=== PATIENT | male | born 1945 | race Caucasian/White ===

== ENCOUNTER 2019-09-26 15:27 | Observation (INO) | payer MEDICARE, BC ==
[2019-09-26] MEDS ORDERED: Temazepam 15 MG Cap PO PRN (17:25)
[2019-09-26] MEDS ORDERED: Sodium Chloride 0.9% 10 ML Syringe FLUSH PRN (17:25)
[2019-09-26] MEDS ORDERED: Morphine 2 MG/ML SYRINGE IVPUSH PRN (17:25)
[2019-09-26] MEDS ORDERED: Acetaminophen/HYDROcodone 325-5 MG Tab PO PRN (17:25)
[2019-09-26] MEDS ORDERED: Ondansetron 4 MG Tab.DIS PO PRN (17:25)
[2019-09-26] MEDS ORDERED: Ketorolac 30 MG/ML SDV IVPUSH PRN (17:30)
[2019-09-26] MEDS: Cyclobenzaprine 10 MG Tab PO SCH (19:30)
[2019-09-26] MEDS: Carvedilol 3.125 MG Tab PO SCH (19:30)
[2019-09-27] MEDS: Carvedilol 3.125 MG Tab PO SCH ×2 (07:31→17:35)
[2019-09-27] MEDS: Aspirin 325 MG Tab PO SCH (07:31)
[2019-09-27] MEDS: Lisinopril 10 MG Tab PO SCH (07:32)
[2019-09-27] MEDS: Cyclobenzaprine 10 MG Tab PO SCH ×3 (07:32→19:35)
[2019-09-27] MEDS: Furosemide 40 MG Tab PO SCH (07:32)
[2019-09-27] MEDS: Clopidogrel 75 MG Tab PO SCH (07:32)
[2019-09-27] MEDS ORDERED: Simvastatin 20 MG Tab PO SCH (08:00)
--- NOTE | 2019-09-27 09:23 | PCM.PN ---
- General Info Date of Service: 09/27/19 Admission Dx/Problem (Free Text): Low Back Pain Functional Status: Reports: Pain Controlled (rates pain down to a 4 with movement, previously a 10), Tolerating Diet, Ambulating - Review of Systems General: Reports: Weakness HEENT: Reports: No Symptoms Pulmonary: Denies: Shortness of Breath, Cough Cardiovascular: Denies: Chest Pain, Edema, Lightheadedness Gastrointestinal: Denies: Abdominal Pain, Nausea, Vomiting Genitourinary: Reports: No Symptoms Musculoskeletal: Reports: Back Pain Skin: Reports: No Symptoms Neurological: Reports: Weakness - Patient Data Vitals - Most Recent: Last Vital Signs Temp 98.2 F 09/27/19 07:43 Pulse 80 09/27/19 07:43 Resp 18 09/27/19 07:43 BP 116/63 09/27/19 07:43 Pulse Ox 99 09/27/19 07:43 Weight - Most Recent: 221 lb Lab Results Last 24 Hours: Laboratory Results - last 24 hr 09/26/19 09/26/19 Range/Units 17:25 17:35 WBC 6.6 (5.0-10.0) 10^3/uL RBC 4.74 (4.50-6.00) 10^6/uL Hgb 14.3 (14.0-18.0) g/dL Hct 42.8 (40.0-54.0) % MCV 90.3 (82.0-94.0) fL MCH 30.2 (27.0-32.0) pg MCHC 33.4 (33.0-38.0) g/dL RDW Coeff of Kira 12.3 (11.0-15.0) % Plt Count 257 (150-400) 10^3/uL Neut % (Auto) 62.9 (35-85) % Lymph % (Auto) 22.4 (10-55) % Piatt % (Auto) 12.2 (0-16) % Eos % (Auto) 2.0 (0-5) % Baso % (Auto) 0.5 (0-3) % Neut # (Auto) 4.13 (1.80-7.00) 10^3/uL Lymph # (Auto) 1.47 (1.00-4.80) 10^3/uL Piatt # (Auto) 0.80 (0.00-0.80) 10^3/uL Eos # (Auto) 0.13 (0.00-0.45) 10^3/uL Baso # (Auto) 0.03 10^3/uL Sodium 139 (136-145) mEq/L Potassium 4.3 (3.5-5.0) mEq/L Chloride 100 (98-106) mEq/L Carbon Dioxide 29 (21-32) mmol/L BUN 25 H (7-18) mg/dL Creatinine 1.3 (0.7-1.3) mg/dL Est Cr Clr Drug Dosing 49.69 mL/min Estimated GFR (MDRD) 54 L (>=60) mL/min Glucose 108 H D (75-99) mg/dL Calcium 9.2 (8.4-10.1) mg/dL Med Orders - Current: Current Medications Hydrocodone Bitart/Acetaminophen ([place] 325-5 Mg) 1 tab PO Q4H PRN PRN Reason: Pain (moderate 4-6) Last Admin: 09/27/19 07:39 Dose: 1 tab Aspirin (Aspirin) 325 mg PO DAILY [facility] Last Admin: 09/27/19 07:31 Dose: 325 mg Carvedilol (Coreg) 3.125 mg PO BIDMEALS [facility] [place] Clopidogrel Bisulfate (Plavix) 75 mg PO DAILY [facility] [place] Last Admin: 09/27/19 07:32 Dose: 75 mg Cyclobenzaprine HCl (Flexeril) 10 mg PO TID [facility] [place] Last Admin: 09/27/19 07:32 Dose: 10 mg Enoxaparin Sodium (Lovenox) 40 mg SUBCUT Q24H [facility] Furosemide (Lasix) 40 mg PO DAILY [facility] [place] Last Admin: 09/27/19 07:32 Dose: 40 mg Lisinopril (Prinivil) 10 mg PO DAILY [facility] [place] Last Admin: 09/27/19 07:32 Dose: 10 mg Metformin HCl (Glucophage) 850 mg PO BIDMEALS [facility] [place] Last Admin: 09/27/19 07:31 Dose: 850 mg Morphine Sulfate (Morphine) 2 mg IVPUSH Q2H PRN PRN Reason: Pain (severe 7-10) Non-Formulary Medication (Ubidecarenone [Coq-10]) 1 tab PO DAILY [facility] [place] Ondansetron HCl (Zofran Odt) 4 mg PO Q4H PRN PRN Reason: nausea, able to take PO Pantoprazole Sodium (Protonix Iv) 40 mg IVPUSH Q24H [facility] [place] Prednisone (Prednisone) 40 mg PO DAILY@1200 [facility] Simvastatin (Zocor) 20 mg PO DAILY [facility] [place] Last Admin: 09/27/19 07:31 Dose: 20 mg Sodium Chloride (Saline Flush) 10 ml FLUSH ASDIRECTED PRN PRN Reason: Keep Vein Open Temazepam (Restoril) 15 mg PO BEDTIME PRN PRN Reason: Sleep Discontinued Medications Carvedilol (Coreg) 3.125 mg PO BID [facility] [place] Last Admin: 09/27/19 07:31 Dose: 3.125 mg Ketorolac Tromethamine (Toradol) 30 mg IVPUSH Q8H PRN PRN Reason: Pain (moderate 4-6) Stop: 10/01/19 17:30 Last Admin: 09/26/19 19:35 Dose: 30 mg - Exam General: Alert, Oriented HEENT: Mucous Membr. Moist/[place] Neck: Supple Lungs: Clear to Auscultation, Normal Respiratory Effort Cardiovascular: Regular Rate, Regular Rhythm GI/Abdominal Exam: Normal Bowel Sounds, Soft, Non-Tender Back Exam: Muscle Spasm, Paraspinal Tenderness (right hip tenderness with palpation) Extremities: Normal Inspection, No Pedal Edema Sepsis Event Note - Evaluation Sepsis Screening Result: No Definite Risk - Focused Exam Vital Signs: Vital Signs Temp Temp Pulse Pulse Resp BP BP 09/27/19 07:43 98.2 F 80 18 09/27/19 07:32 116/63 09/27/19 07:31 80 116/63 09/27/19 00:00 97.7 F 73 20 113/68 BP Pulse Ox 09/27/19 07:43 116/63 99 09/27/19 07:32 09/27/19 07:31 09/27/19 00:00 97 Date Exam was Performed: 09/27/19 Time Exam was Performed: 09:18 - Problem List & Annotations (1) Low back pain SNOMED Code(s): 818951828 Code(s): M54.5 - LOW BACK PAIN Status: Acute Priority: High Current Visit: Yes Qualifiers: Chronicity: acute Back pain laterality: right Sciatica presence: with sciatica Sciatica laterality: sciatica of right side Qualified Code(s): M54.41 - Lumbago with sciatica, right side - Problem List Review Problem List Initiated/Reviewed/Updated: Yes - My Orders Last 24 Hours: My Active Orders 09/27/19 09:15 Enoxaparin [Lovenox] 40 mg SUBCUT Q24H Pantoprazole [ProTONIX IV] 40 mg IVPUSH Q24H 09/27/19 12:00 predniSONE 40 mg PO DAILY@1200 - Assessment Assessment:: Acute Low back pain with radiculopathy to right leg - Plan Plan:: Patient has improved. States has less pain down his leg now. Pain at a 4/10 with activity. Is tolerating oral pain meds. Tender yet in back, sore with movement. Is ambulating with walker. Labs were all normal, WBC 6.6. Hemoglobin 14.3. Sodium 139, potassium 4.3. Creatinine 1.3 Will stop IV Toradol. Start prednisone 40 mg daily. Start IV Protonix. Physical therapy. Encourage ambulation. Reevaluate in am.
[2019-09-27] MEDS: Enoxaparin 40 MG/0.4 ML Syringe SUBCUT SCH (11:28)
[2019-09-27] MEDS: predniSONE 20 MG Tab PO SCH (11:28)
[2019-09-27] MEDS: Pantoprazole 40 MG Vial IVPUSH SCH (11:28)
[2019-09-27] MEDS ORDERED: UBIDECARENONE PO SCH (17:30)
[2019-09-28] MEDS: Carvedilol 3.125 MG Tab PO SCH (08:07)
[2019-09-28] MEDS: Clopidogrel 75 MG Tab PO SCH (08:08)
[2019-09-28] MEDS: Furosemide 40 MG Tab PO SCH (08:08)
[2019-09-28] MEDS: Lisinopril 10 MG Tab PO SCH (08:08)
[2019-09-28] MEDS: Aspirin 325 MG Tab PO SCH (08:11)
[2019-09-28] MEDS: Cyclobenzaprine 10 MG Tab PO SCH (08:11)
[2019-09-28] MEDS: Pantoprazole 40 MG Vial IVPUSH SCH (11:16)
[2019-09-28] MEDS: Enoxaparin 40 MG/0.4 ML Syringe SUBCUT SCH (11:16)
[2019-09-28] MEDS: predniSONE 20 MG Tab PO SCH (11:17)
[2019-09-28] MEDS ORDERED: Simvastatin 20 MG Tab PO SCH (17:30)
--- NOTE | 2019-09-28 21:54 | PCM.DCSUM1 ---
Discharge Summary - Hospital Course Free Text/Narrative:: Patient presented to clinic to see Dr. Crook with complaints of right hip pain for several days. Was trying to shovel water away and felt he pulled something. Had tried ice, heat and rest without improvement. Unable to get comfortable, pain increases with movement, bending and lifting. Had pain with range of motion of his back and hip. Tender to right lumbar paraspinal region. Some weakness in right leg. Due to severe pain, was admitted for pain control and PT. Diagnosis: Stroke: No Modified [place] Scale: No Symptoms at All Modified Singh Scale Score: 0 - Discharge Data Discharge Date: 09/28/19 Discharge Disposition: Home, Self-Care 01 Condition: Fair - Referral to Home Health Primary Care Physician: Miky Crook MD - Discharge Diagnosis/Problem(s) (1) Low back pain SNOMED Code(s): 849338554 ICD Code: M54.5 - LOW BACK PAIN Status: Acute Priority: High Qualifiers: Chronicity: acute Back pain laterality: right Sciatica presence: with sciatica Sciatica laterality: sciatica of right side Qualified Code(s): M54.41 - Lumbago with sciatica, right side - Patient Summary/Data Complications: none Consults: Consultations 09/26/19 17:25 PT Evaluation and Treatment [CONS] Routine Hospital Course: Patient has vastly improved. Pain down to a 2 now, only with movement. Does still have discomfort in the right paraspinal region and right buttock. No further pain down his leg. No weakness noted in his leg. Tolerating pain with oral pain meds. Prednisone was started yesterday, will continue on discharge. PT been working with patient, feeling some relief with that. Able to ambulate and has better range of motion now with less pain. Strengths are equal in lower extremities. Discharge home on prednisone and [place]. PT as directed as outpatient. Follow up with Dr. Crook next week or sooner if increasing issues. - Patient Instructions Diet: Usual Diet as Tolerated Activity: As Tolerated - Discharge Plan *PRESCRIPTION DRUG MONITORING PROGRAM REVIEWED*: No *COPY OF PRESCRIPTION DRUG MONITORING REPORT IN PATIENT MATTIE: No Prescriptions/Med Rec: Acetaminophen/HYDROcodone [[place] 325-5 MG] 1 tab PO Q4H PRN #30 tablet PRN Reason: Pain (Moderate 4-6) Cyclobenzaprine [Flexeril] 10 mg PO TID #30 tablet predniSONE 40 mg PO DAILY@1200 #6 tablet Home Medications: Home Meds Aspirin 1 tab PO DAILY 09/26/19 [History] Carvedilol [Coreg] 1 tab PO BID 09/26/19 [History] Clopidogrel [Plavix] 1 tab PO DAILY 09/26/19 [History] Fish Oil/[place]-3 Fatty Acids [Fish Oil 1,000 MG] 1 cap PO DAILY 09/26/19 [ History] Furosemide [Lasix] 1 tab PO DAILY 09/26/19 [History] Lisinopril [Zestril] 1 tab PO DAILY 09/26/19 [History] Multivitamin [Daily [place]] 1 tab PO DAILY 09/26/19 [History] Simvastatin 1 tab PO DAILY 09/26/19 [History] Ubidecarenone [COQ-10] 1 tab PO DAILY 09/26/19 [History] metFORMIN HCl [Metformin HCl] 1 tab PO BIDMEALS 09/26/19 [History] Acetaminophen/HYDROcodone [[place] 325-5 MG] 1 tab PO Q4H PRN #30 tablet 09/28/19 [Rx] Cyclobenzaprine [Flexeril] 10 mg PO TID #30 tablet 09/28/19 [Rx] predniSONE 40 mg PO DAILY@1200 #6 tablet 09/28/19 [Rx] Referrals: Miky Crook MD [Primary Care Provider] - (Follow up with Dr. Crook in 10 days) - Discharge Summary/Plan Comment DC Time >30 min.: No - General Info Date of Service: 09/28/19 Admission Dx/Problem (Free Text: Low Back Pain Functional Status: Reports: Pain Controlled, Tolerating Diet, Ambulating - Review of Systems General: Reports: No Symptoms HEENT: Reports: No Symptoms Pulmonary: Reports: No Symptoms Cardiovascular: Reports: No Symptoms Gastrointestinal: Reports: No Symptoms Musculoskeletal: Reports: Back Pain Skin: Reports: No Symptoms Neurological: Denies: Numbness, Tingling, Gait Disturbance - Patient Data Vitals - Most Recent: Last Vital Signs Temp 98.2 F 09/28/19 12:00 Pulse 80 09/28/19 12:00 Resp 16 09/28/19 12:00 BP 132/66 09/28/19 12:00 Pulse Ox 96 09/28/19 12:00 Weight - Most Recent: 221 lb Med Orders - Current: Current Medications Discontinued Medications Hydrocodone Bitart/Acetaminophen ([place] 325-5 Mg) 1 tab PO Q4H PRN PRN Reason: Pain (moderate 4-6) Last Admin: 09/27/19 07:39 Dose: 1 tab Aspirin (Aspirin) 325 mg PO DAILY [facility] Last Admin: 09/28/19 08:11 Dose: 325 mg Carvedilol (Coreg) 3.125 mg PO BID [facility] Last Admin: 09/27/19 07:31 Dose: 3.125 mg Carvedilol (Coreg) 3.125 mg PO BIDMEALS [facility] Last Admin: 09/28/19 08:07 Dose: 3.125 mg Clopidogrel Bisulfate (Plavix) 75 mg PO DAILY [facility] Last Admin: 09/28/19 08:08 Dose: 75 mg Cyclobenzaprine HCl (Flexeril) 10 mg PO TID [facility] Last Admin: 09/28/19 08:11 Dose: 10 mg Enoxaparin Sodium (Lovenox) 40 mg SUBCUT Q24H [facility] Last Admin: 09/28/19 11:16 Dose: 40 mg Furosemide (Lasix) 40 mg PO DAILY [facility] Last Admin: 09/28/19 08:08 Dose: 40 mg Ketorolac Tromethamine (Toradol) 30 mg IVPUSH Q8H PRN PRN Reason: Pain (moderate 4-6) Stop: 10/01/19 17:30 Last Admin: 09/26/19 19:35 Dose: 30 mg Lisinopril (Prinivil) 10 mg PO DAILY [facility] Last Admin: 09/28/19 08:08 Dose: 10 mg Metformin HCl (Glucophage) 850 mg PO BIDMEALS [facility] Last Admin: 09/28/19 08:07 Dose: 850 mg Morphine Sulfate (Morphine) 2 mg IVPUSH Q2H PRN PRN Reason: Pain (severe 7-10) Ubidecarenone [Coq- (10] 1 Tab) 1 tab PO WITHDINNER [facility] Last Admin: 09/27/19 17:36 Dose: 1 tab Ondansetron HCl (Zofran Odt) 4 mg PO Q4H PRN PRN Reason: nausea, able to take PO Pantoprazole Sodium (Protonix Iv) 40 mg IVPUSH Q24H [facility] Last Admin: 09/28/19 11:16 Dose: 40 mg Prednisone (Prednisone) 40 mg PO DAILY@1200 [facility] Last Admin: 09/28/19 11:17 Dose: 40 mg Simvastatin (Zocor) 20 mg PO DAILY [facility] Last Admin: 09/27/19 07:31 Dose: 20 mg Simvastatin (Zocor) 20 mg PO WITHDINNER [facility] Sodium Chloride (Saline Flush) 10 ml FLUSH ASDIRECTED PRN PRN Reason: Keep Vein Open Temazepam (Restoril) 15 mg PO BEDTIME PRN PRN Reason: Sleep - Exam General: Reports: Alert, Oriented HEENT: Reports: Mucous Membr. Moist/[place] Neck: Reports: Supple Lungs: Reports: Clear to Auscultation, Normal Respiratory Effort Cardiovascular: Reports: Regular Rate, Regular Rhythm GI/Abdominal Exam: Normal Bowel Sounds, Soft, Non-Tender Back Exam: Reports: Decreased Range of Motion, Muscle Spasm, Paraspinal Tenderness Extremities: Normal Inspection, No Pedal Edema Skin: Reports: Warm, Dry Neurological: Reports: No New Focal Deficit
== END 2019-09-28 13:00 | disposition home or self-care (01) ==
LOC: CC.FCMC 15:27 → INTOOBSV 16:24 → UNDOADMOB 16:24 → CC.MS 16:24
PROVIDERS: ADMIT Family Medicine; ATTEND Family Medicine
DX: M54.41 Lumbago with sciatica, right side (principal); N40.0 Benign prostatic hyperplasia without lower urinary tract symptoms; E78.00 Pure hypercholesterolemia, unspecified; I11.0 Hypertensive heart disease with heart failure; I50.9 Heart failure, unspecified; E11.9 Type 2 diabetes mellitus without complications; Z88.8 Allergy status to other drugs, medicaments and biological substances; Z87.891 Personal history of nicotine dependence; Z79.84 Long term (current) use of oral hypoglycemic drugs; Z79.82 Long term (current) use of aspirin; Z79.02 Long term (current) use of antithrombotics/antiplatelets; Z79.899 Other long term (current) drug therapy
CPT/HCPCS: 36415; 72100; 72170; 80048; 85025; 96372; 96374; 96375; 96376; 97035; 97161; A9270; C9113; G0378; J1650; J1885; 99217; 99220; 99225

== ENCOUNTER 2024-08-17 10:29 | Observation (INO) | payer MEDICARE, BC ==
[2024-08-17] MEDS ORDERED: Acetaminophen 325 MG Tab PO PRN (11:04)
[2024-08-17] MEDS ORDERED: Docusate Sodium 100 MG Cap PO PRN (11:04)
[2024-08-17] MEDS ORDERED: Morphine 2 MG/ML SYRINGE IVPUSH PRN (11:04)
[2024-08-17] MEDS ORDERED: Ondansetron 4 MG Tab.DIS PO PRN (11:04)
[2024-08-17] MEDS ORDERED: Polyethylene Glycol 3350 Powder 17 GM Packet PO PRN (11:04)
[2024-08-17 11:13] LABS: APPEARANCE,URINE CLEAR (CLEAR); BILIRUBIN,URINE NEGATIVE (NEGATIVE); COLOR,URINE YELLOW (YELLOW); GLUCOSE,URINE 500 mg/dL (NEGATIVE); KETONES,URINE NEGATIVE (NEGATIVE); LEUKOCYTE ESTERASE,URINE NEGATIVE (NEGATIVE); NITRITE,URINE NEGATIVE (NEGATIVE); OCCULT BLOOD,URINE NEGATIVE (NEGATIVE); PROTEIN,URINE NEGATIVE (NEGATIVE); UROBILINOGEN,URINE 0.2 EU/dL (0.2-1.0)
[2024-08-17] MEDS: Apixaban 5 MG Tab PO SCH (12:00)
[2024-08-17] MEDS: Diltiazem 120 MG Cap.CD PO SCH (12:00)
[2024-08-17] MEDS: Sodium Chloride 0.9% 500 ML IV SCH (17:37)
[2024-08-17] MEDS: Cyclobenzaprine 10 MG Tab PO PRN (17:37)
[2024-08-17] MEDS: Acetaminophen/HYDROcodone 325-5 MG Tab PO PRN (17:38)
[2024-08-17] MEDS: Rosuvastatin 10 MG Tab PO SCH (19:48)
[2024-08-18] MEDS: Multivitamin Tab PO SCH (07:35)
[2024-08-18] MEDS: Carvedilol 12.5 MG Tab PO SCH (07:36)
[2024-08-18] MEDS: Furosemide 40 MG Tab PO SCH (07:36)
[2024-08-18] MEDS: Clopidogrel 75 MG Tab PO SCH (07:36)
[2024-08-18] MEDS: Lisinopril 10 MG Tab PO SCH (07:36)
[2024-08-18] MEDS: Fish Oil/Omega-3 Fatty Acids 1 Gm Cap PO SCH (07:37)
[2024-08-18 07:44] LABS: BASOPHILS ABSOLUTE AUTO 0.05 10^3/uL (0.00-0.50); BASOPHILS PERCENT AUTO 0.8 % (0-1); EOSINOPHILS ABSOLUTE AUTO 0.18 10^3/uL (0.00-1.50); IMMATURE GRAN ABSOLUTE AUTO 0.01 10^3/uL (0.00-0.49); IMMATURE GRAN PERCENT AUTO 0.2 % (0.0-4.9); LYMPHOCYTES ABSOLUTE AUTO 1.62 10^3/uL (0.60-5.00); LYMPHOCYTES PERCENT AUTO 27.3 % (24-44); MEAN CORPUSCULAR HEMOGLOBIN 29.2 pg (27.0-32.0); MEAN CORPUSCULAR HGB CONC 32.5 g/dL (32.0-36.0); MEAN CORPUSCULAR VOLUME 89.9 fL (83.0-97.0); MONOCYTES ABSOLUTE AUTO 0.73 10^3/uL (0.00-1.50); MONOCYTES PERCENT AUTO 12.3 % (0-10); NEUTROPHILS ABSOLUTE AUTO 3.34 x10^3/uL (1.80-8.00); NEUTROPHILS PERCENT AUTO 56.4 % (41-71); PLATELET COUNT,PLT 186 10^3/uL (150-400); RED BLOOD CELL COUNT 4.45 x10^6/uL (4.50-6.00); WHITE BLOOD CELL COUNT,WBC 5.9 10^3/uL (4.0-11.0)
[2024-08-18] MEDS ORDERED: Non-Formulary Medication 1 Each (Dapagliflozin Propanediol [Farxiga] 5 MG Tablet) PO SCH (08:00)
[2024-08-18] MEDS ORDERED: UBIDECARENONE 30 MG PO SCH (08:00)
[2024-08-18 08:16] LABS: CALCIUM 9.1 mg/dL (8.4-10.1); CREATININE 1.3 mg/dL (0.7-1.3); EST CRCL DRUG DOSING (CG) 46.04 mL/min; MAGNESIUM 1.9 mg/dL (1.8-2.4); POTASSIUM,K 4.3 mEq/L (3.5-5.0)
== END 2024-08-18 15:25 | disposition home or self-care (01) ==
LOC: CC.MS 10:29 → UNDOADMOB 10:29 → CC.MS 11:06
PROVIDERS: ADMIT Nurse Practitioner; ATTEND Nurse Practitioner
DX: I48.92 Unspecified atrial flutter (principal); M54.41 Lumbago with sciatica, right side; M54.16 Radiculopathy, lumbar region; E11.9 Type 2 diabetes mellitus without complications; Z79.84 Long term (current) use of oral hypoglycemic drugs; Z79.899 Other long term (current) drug therapy
CPT/HCPCS: 36415; 72148; 80048; 81003; 83735; 84484; 85025; 93005; A9270-GY; J7040